=== PATIENT | female | born 1965 | race Caucasian/White ===

== ENCOUNTER 2022-04-14 12:03 | Observation (INO) | payer BC ==
[2022-04-14 12:26] VITALS: BMI 30.9
[2022-04-14] MEDS ORDERED: IBUPROFEN 600 MG TABLET (FP) PO ONE ×2 (13:47→13:49)
[2022-04-14] MEDS ORDERED: ACETAMINOPHEN 325 MG TABLET (FP) PO ONE (16:50)
[2022-04-14] MEDS ORDERED: ACETAMINOPHEN 325 MG TABLET (FP) ONE (16:55)
[2022-04-14 17:29] LABS: INR 1.13 (0.83-1.09)
[2022-04-14 17:31] LABS: ACTIVATED PTT 61.2 SECONDS (25.2-36.5); BASO % 0.5 % (0-2.0); EOS % 2.2 % (0-4.5); HEMATOCRIT 32.7 % (32.4-45.2); HEMOGLOBIN 10.7 GM/dL (10.7-15.3); LYMPH % 27.2 % (8-40); MCH 26.1 pg (25.7-33.7); MCHC 32.7 g/dl (32.0-36.0); MEAN CELL VOLUME 79.8 fl (80-96); MEAN PLT VOLUME 8.9 fl (7.5-11.1); MONO % 8.2 % (3.8-10.2); NEUT % 61.9 % (42.8-82.8); PLATELET COUNT 205 10^3/uL (134-434); RDW 15.5 % (11.6-15.6); WHITE BLOOD COUNT 9.5 K/mm3 (4.0-10.0)
[2022-04-14 17:44] LABS: BLOOD UREA NITROGEN 17.4 mg/dL (7-18); CALCIUM 9.6 mg/dL (8.5-10.1)
[2022-04-14 17:48] LABS: CREATININE 0.8 mg/dL (0.55-1.3)
[2022-04-14 17:49] LABS: BILIRUBIN,TOTAL 0.4 mg/dL (0.2-1); TOT PROT 7.5 g/dl (6.4-8.2)
[2022-04-14] MEDS ORDERED: ACETAMINOPHEN 325 MG TABLET (FP) PO PRN (17:56)
[2022-04-14] MEDS ORDERED: ACETAMINOPHEN 500 MG TABLET (FP) PO PRN (17:58)
[2022-04-14] MEDS ORDERED: ENOXAPARIN NA (PORCINE) 80 MG/0.8 ML DISP.SYRIN SQ SCH (18:00)
[2022-04-14] MEDS ORDERED: morphine SULFATE 4 MG/ML VIAL ONE (20:30)
[2022-04-14] MEDS: morphine SULFATE 4 MG/ML VIAL IVPUSH PRN (20:37)
[2022-04-14] MEDS: APIXABAN 5 MG TABLET PO SCH (22:17)
[2022-04-14] MEDS ORDERED: SIMETHICONE 80 MG TAB.CHEW (FP) PO ONE (23:01)
[2022-04-14] MEDS ORDERED: MELATONIN 5 MG TABLETS PO PRN (23:04)
[2022-04-15] MEDS ORDERED: ZOLPIDEM TARTRATE 5 MG TABLET PO ONE (01:00)
[2022-04-15 08:54] LABS: HEMATOCRIT 29.2 % (32.4-45.2); HEMOGLOBIN 9.6 GM/dL (10.7-15.3); MCHC 32.9 g/dl (32.0-36.0); MEAN CELL VOLUME 79.1 fl (80-96); MEAN PLT VOLUME 8.6 fl (7.5-11.1); PLATELET COUNT 185 10^3/uL (134-434); RBC 3.69 M/mm3 (3.60-5.2); RDW 15.4 % (11.6-15.6); WHITE BLOOD COUNT 5.3 K/mm3 (4.0-10.0)
[2022-04-15 09:26] LABS: CALCIUM 9.6 mg/dL (8.5-10.1)
[2022-04-15 09:31] LABS: CREATININE 0.6 mg/dL (0.55-1.3)
[2022-04-15] MEDS ORDERED: PATIENT'S OWN MEDICATION (NON-FORMULARY) (Lisinopril/Hydrochlorothiazide [Lisinopril-Hctz PO SCH (10:00)
[2022-04-15] MEDS ORDERED: FLU VACC QS2022-23(6MOS UP)/PF 60 MCG/0.5 ML SYRINGE IM ONE (10:00)
[2022-04-15] MEDS: HYDROCHLOROTHIAZIDE 12.5 MG CAPSULE (FP) PO SCH (10:19)
[2022-04-15] MEDS: LISINOPRIL 20 MG TABLET PO SCH (10:19)
[2022-04-15] MEDS: APIXABAN 5 MG TABLET PO SCH ×2 (10:19→21:18)
[2022-04-15] MEDS: PANTOPRAZOLE 20 MG TABLET PO SCH (13:21)
[2022-04-15] MEDS: morphine SULFATE 4 MG/ML VIAL IVPUSH PRN (15:00)
[2022-04-15 15:33] LABS: INR 1.6 (0.83-1.09); PROTHROMBIN TIME (PATIENT) 18.5 SEC (9.7-13.0)
[2022-04-15 15:36] LABS: ACTIVATED PTT 74.2 SECONDS (25.2-36.5)
[2022-04-16 06:32] VITALS: PULSE 62; RESP 20
[2022-04-16] MEDS: APIXABAN 5 MG TABLET PO SCH (10:11)
[2022-04-16] MEDS: HYDROCHLOROTHIAZIDE 12.5 MG CAPSULE (FP) PO SCH (10:11)
[2022-04-16] MEDS: PANTOPRAZOLE 20 MG TABLET PO SCH (10:11)
[2022-04-16] MEDS: LISINOPRIL 20 MG TABLET PO SCH (10:12)
[2022-04-16] MEDS ORDERED: IRON SUCROSE INJECTION 100 MG in SODIUM CHLORIDE 95 ML IVPB ONE (10:15)
[2022-04-16 10:39] LABS: HEMATOCRIT 34.6 % (32.4-45.2); HEMOGLOBIN 10.8 GM/dL (10.7-15.3); MCH 24.9 pg (25.7-33.7); MCHC 31.4 g/dl (32.0-36.0); MEAN CELL VOLUME 79.5 fl (80-96); PLATELET COUNT 255 10^3/uL (134-434); RBC 4.35 M/mm3 (3.60-5.2); RDW 15.7 % (11.6-15.6); WHITE BLOOD COUNT 7.4 K/mm3 (4.0-10.0)
[2022-04-16 10:50] LABS: INR 1.3 (0.83-1.09)
[2022-04-16 10:53] LABS: ACTIVATED PTT 76.7 SECONDS (25.2-36.5)
[2022-04-16 11:02] LABS: ALBUMIN 3.4 g/dl (3.4-5.0); BLOOD UREA NITROGEN 13.1 mg/dL (7-18); CALCIUM 9.4 mg/dL (8.5-10.1)
[2022-04-16 11:05] LABS: CREATININE 0.6 mg/dL (0.55-1.3)
[2022-04-16 11:07] LABS: BILIRUBIN,TOTAL 0.3 mg/dL (0.2-1)
[2022-04-16] MEDS ORDERED: GLYCERIN 1 RECTAL SUPPOSITORY, ADULT RC ONE (13:42)
[2022-04-16 14:32] VITALS: BP 136/76; TEMP 98.2
[2022-04-18 13:07] LABS: PROTEIN S FREE 98 % (61-136)
== END 2022-04-16 19:15 | disposition home or self-care (01) ==
LOC: JER 12:03 → UNDOADMOB 17:24 → JERBED 17:24 → INTOOBSV 17:24 → JERBED 17:59 → J8W 20:54
PROVIDERS: ADMIT Internal Medicine; ATTEND Internal Medicine
PROC: 3E0234Z Introduction of Serum, Toxoid and Vaccine into Muscle, Percutaneous Approach (ICD-10-PCS; principal; 2022-04-14)
PROC: 3E033NZ Introduction of Analgesics, Hypnotics, Sedatives into Peripheral Vein, Percutaneous Approach (ICD-10-PCS; 2022-04-14)
DX: I82.462 Acute embolism and thrombosis of left calf muscular vein (principal); Z79.01 Long term (current) use of anticoagulants; Z88.8 Allergy status to other drugs, medicaments and biological substances; E66.8 Other obesity; Z68.31 Body mass index [BMI] 31.0-31.9, adult; I10 Essential (primary) hypertension; Z98.84 Bariatric surgery status; Z23 Encounter for immunization
CPT/HCPCS: 36415; 71046-TC-FY; 76700-TC; 80048; 80053; 81241; 82272; 82728; 83540; 83550; 85025; 85027; 85300; 85302; 85303; 85305; 85306; 85610; 85613; 85730; 85732; 93005; 93010; 93971-TC; 99285-25; C9803-CS; G0378; Q2036; U0003; U0005

== ENCOUNTER 2022-04-21 15:40 | Emergency (ER) | payer BC ==
[2022-04-21 15:49] VITALS: BP 102/66; PULSE 87; RESP 18; TEMP 98.3; BMI 31.4
[2022-04-21] MEDS ORDERED: ACETAMINOPHEN 325 MG TABLET (FP) PO ONE (16:19)
[2022-04-21] MEDS ORDERED: ACETAMINOPHEN 325 MG TABLET (FP) ONE (16:22)
== END 2022-04-21 17:44 | disposition home or self-care (01) ==
LOC: JER 15:40
DX: I82.431 Acute embolism and thrombosis of right popliteal vein (principal)
CPT/HCPCS: 93971-TC; 99284-25

== ENCOUNTER 2022-06-26 12:49 | Day surgery (SDC) | payer BC ==
[~2022-06-26 12:49] MED LIST: IRON SUCROSE INJECTION 200 MG in SODIUM CHLORIDE 100 ML IVPB ONE
[2022-06-26 16:42] VITALS: BP 117/68; PULSE 71; RESP 18; TEMP 97.5
== END 2022-06-26 16:45 | disposition home or self-care (01) ==
LOC: JCHEMO 12:49 → J7W 12:49 → JCHEMO 16:45
PROVIDERS: ATTEND Internal Medicine
PROC: 3E033GC Introduction of Other Therapeutic Substance into Peripheral Vein, Percutaneous Approach (ICD-10-PCS; principal; 2022-06-26)
DX: D50.9 Iron deficiency anemia, unspecified (principal)
CPT/HCPCS: 96365; J1756

== ENCOUNTER 2022-06-27 13:56 | Observation (INO) | payer BC ==
[2022-06-27] MEDS ORDERED: ACETAMINOPHEN 1000 MG/100 ML BAG IVPB ONE (15:16)
[2022-06-27] MEDS ORDERED: LACTATED RINGERS SOLUTION 1000 ML INFUS.BAG IV ONE (15:16)
[2022-06-27] MEDS ORDERED: ACETAMINOPHEN INJECTION 100 ML IVPB ONE (15:37)
[2022-06-27 16:46] LABS: BASO % 0.8 % (0-2.0); EOS % 1.7 % (0-4.5); HEMATOCRIT 31.4 % (32.4-45.2); HEMOGLOBIN 10.1 GM/dL (10.7-15.3); LYMPH % 31.3 % (8-40); MCH 25.4 pg (25.7-33.7); MEAN CELL VOLUME 79.2 fl (80-96); MEAN PLT VOLUME 9.1 fl (7.5-11.1); NEUT % 56.2 % (42.8-82.8); PLATELET COUNT 239 10^3/uL (134-434); RBC 3.96 M/mm3 (3.60-5.2)
[2022-06-27 16:51] LABS: INR 1.3 (0.83-1.09)
[2022-06-27 16:53] LABS: ACTIVATED PTT 72.1 SECONDS (25.2-36.5); CHLORIDE 109 mmol/L (98-107); SODIUM 143 mmol/L (136-145)
[2022-06-27 16:55] LABS: ALBUMIN 3.7 g/dl (3.4-5.0); ANION GAP 9 MMOL/L (8-16); BLOOD UREA NITROGEN 17.2 mg/dL (7-18); CALCIUM 9.3 mg/dL (8.5-10.1); CO2 25 mmol/L (21-32); GLUCOSE,RANDOM 93 mg/dL (74-106); MAGNESIUM 2.4 mg/dL (1.8-2.4)
[2022-06-27 16:58] LABS: CREATININE 0.7 mg/dL (0.55-1.3); SGOT/AST 22 U/L (15-37); SGPT/ALT 24 U/L (13-61)
[2022-06-27 17:00] LABS: BILIRUBIN,TOTAL 0.2 mg/dL (0.2-1); TOT PROT 7.1 g/dl (6.4-8.2)
[2022-06-27 17:01] LABS: ALK PHOS 100 U/L (45-117)
[2022-06-27] MEDS ORDERED: ASPIRIN 81 MG CHEWABLE TABLETS PO ONE (17:26)
[2022-06-27 17:33] LABS: ERYTHROCYTE SEDIMENTATION RATE 36 mm/hr (0-30)
[2022-06-27] MEDS ORDERED: ASPIRIN 81 MG CHEWABLE TABLETS ONE (17:37)
[2022-06-27] MEDS ORDERED: APIXABAN 5 MG TABLET ONE (23:07)
[2022-06-27] MEDS: APIXABAN 5 MG TABLET PO SCH (23:08)
[2022-06-28 06:43] LABS: HEMATOCRIT 29.3 % (32.4-45.2); HEMOGLOBIN 9.4 GM/dL (10.7-15.3); MCH 25.6 pg (25.7-33.7); MCHC 32.2 g/dl (32.0-36.0); MEAN CELL VOLUME 79.4 fl (80-96); PLATELET COUNT 205 10^3/uL (134-434); RBC 3.69 M/mm3 (3.60-5.2); WHITE BLOOD COUNT 5.4 K/mm3 (4.0-10.0)
[2022-06-28 06:44] LABS: INR 1.18 (0.83-1.09); PROTHROMBIN TIME (PATIENT) 13.6 SEC (9.7-13.0)
[2022-06-28 06:49] LABS: ALBUMIN 3.2 g/dl (3.4-5.0); BLOOD UREA NITROGEN 12.8 mg/dL (7-18); CALCIUM 8.7 mg/dL (8.5-10.1)
[2022-06-28 06:52] LABS: CREATININE 0.7 mg/dL (0.55-1.3)
[2022-06-28 06:54] LABS: BILIRUBIN,TOTAL 0.2 mg/dL (0.2-1); CHOLESTEROL 165 mg/dL (50-200); TOT PROT 6.1 g/dl (6.4-8.2); TRIGLYCERIDES 41 mg/dL (0-150)
[2022-06-28 06:55] LABS: LDL CHOLESTEROL (ONLY SJRH) 82 mg/dL (5-100)
[2022-06-28 06:57] LABS: HDL CHOLESTEROL 85 mg/dL (40-60)
[2022-06-28] MEDS ORDERED: HYDROCHLOROTHIAZIDE 25 MG TABLET (FP) ONE (09:47)
[2022-06-28] MEDS ORDERED: ZOLPIDEM TARTRATE 5 MG TABLET ONE ×2 (09:47→21:58)
[2022-06-28] MEDS ORDERED: LISINOPRIL 20 MG TABLET ONE (09:47)
[2022-06-28] MEDS ORDERED: APIXABAN 5 MG TABLET ONE ×3 (09:47→22:02)
[2022-06-28] MEDS ORDERED: PATIENT'S OWN MEDICATION (NON-FORMULARY) (Lisinopril/Hydrochlorothiazide [Lisinopril-Hctz PO SCH (10:00)
[2022-06-28] MEDS: ZOLPIDEM TARTRATE 5 MG TABLET PO PRN ×2 (10:08→22:22)
[2022-06-28] MEDS: APIXABAN 5 MG TABLET PO SCH ×2 (10:08→22:22)
[2022-06-28] MEDS: HYDROCHLOROTHIAZIDE 12.5 MG CAPSULE (FP) PO SCH (10:08)
[2022-06-28] MEDS: LISINOPRIL 20 MG TABLET PO SCH (10:08)
[2022-06-29 07:24] LABS: CALCIUM 9.3 mg/dL (8.5-10.1)
[2022-06-29 07:25] LABS: BLOOD UREA NITROGEN 19.4 mg/dL (7-18)
[2022-06-29 07:28] LABS: CREATININE 0.7 mg/dL (0.55-1.3)
[2022-06-29 07:30] LABS: BASO % 0.7 % (0-2.0); EOS % 2.3 % (0-4.5); HEMATOCRIT 28.7 % (32.4-45.2); HEMOGLOBIN 9.5 GM/dL (10.7-15.3); LYMPH % 36.8 % (8-40); MCH 25.9 pg (25.7-33.7); MEAN CELL VOLUME 78.6 fl (80-96); MEAN PLT VOLUME 8.9 fl (7.5-11.1); MONO % 9.7 % (3.8-10.2); NEUT % 50.5 % (42.8-82.8); PLATELET COUNT 239 10^3/uL (134-434); RBC 3.65 M/mm3 (3.60-5.2); RDW 15.9 % (11.6-15.6); WHITE BLOOD COUNT 6.5 K/mm3 (4.0-10.0)
[2022-06-29] MEDS ORDERED: APIXABAN 5 MG TABLET ONE ×2 (09:54→21:34)
[2022-06-29] MEDS ORDERED: HYDROCHLOROTHIAZIDE 25 MG TABLET (FP) ONE (09:55)
[2022-06-29] MEDS ORDERED: LISINOPRIL 20 MG TABLET ONE (09:55)
[2022-06-29] MEDS: HYDROCHLOROTHIAZIDE 12.5 MG CAPSULE (FP) PO SCH (09:56)
[2022-06-29] MEDS: LISINOPRIL 20 MG TABLET PO SCH (09:56)
[2022-06-29] MEDS: APIXABAN 5 MG TABLET PO SCH ×2 (09:56→21:32)
[2022-06-29 20:27] VITALS: RESP 18
[2022-06-29] MEDS: ZOLPIDEM TARTRATE 5 MG TABLET PO PRN (21:32)
[2022-06-29] MEDS ORDERED: ZOLPIDEM TARTRATE 5 MG TABLET ONE (21:33)
[2022-06-30 07:57] LABS: BASO % 0.9 % (0-2.0); EOS % 2.3 % (0-4.5); HEMATOCRIT 31.9 % (32.4-45.2); HEMOGLOBIN 10.2 GM/dL (10.7-15.3); LYMPH % 34.3 % (8-40); MCH 25.4 pg (25.7-33.7); MEAN CELL VOLUME 79.3 fl (80-96); MEAN PLT VOLUME 8.9 fl (7.5-11.1); MONO % 8.4 % (3.8-10.2); NEUT % 54.1 % (42.8-82.8); PLATELET COUNT 271 10^3/uL (134-434); RBC 4.03 M/mm3 (3.60-5.2); WHITE BLOOD COUNT 6.4 K/mm3 (4.0-10.0)
[2022-06-30 08:20] LABS: BLOOD UREA NITROGEN 15.8 mg/dL (7-18); CALCIUM 9.1 mg/dL (8.5-10.1)
[2022-06-30 08:22] LABS: CREATININE 0.7 mg/dL (0.55-1.3)
[2022-06-30] MEDS ORDERED: HYDROCHLOROTHIAZIDE 25 MG TABLET (FP) ONE (09:24)
[2022-06-30] MEDS ORDERED: APIXABAN 5 MG TABLET ONE (09:24)
[2022-06-30] MEDS ORDERED: LISINOPRIL 20 MG TABLET ONE (09:25)
[2022-06-30] MEDS: HYDROCHLOROTHIAZIDE 12.5 MG CAPSULE (FP) PO SCH ×2 (10:30→11:39)
[2022-06-30] MEDS: APIXABAN 5 MG TABLET PO SCH (11:39)
[2022-06-30] MEDS: LISINOPRIL 20 MG TABLET PO SCH (11:40)
[2022-06-30 13:48] VITALS: BMI 32.5
[2022-06-30 15:26] VITALS: BP 122/75; PULSE 73; TEMP 98.2
[2022-06-30] MEDS ORDERED: APIXABAN 5 MG TABLET PO SCH (22:00)
[2022-07-01] MEDS ORDERED: LISINOPRIL 20 MG TABLET PO SCH (10:00)
== END 2022-06-30 16:05 | disposition home or self-care (01) ==
LOC: JER 13:56 → JERBED 18:15 → J5S 06-30 11:01
PROVIDERS: ADMIT Internal Medicine; ATTEND Internal Medicine
PROC: 3E033NZ Introduction of Analgesics, Hypnotics, Sedatives into Peripheral Vein, Percutaneous Approach (ICD-10-PCS; principal; 2022-06-27)
DX: I10 Essential (primary) hypertension (principal); Z86.718 Personal history of other venous thrombosis and embolism; Z87.891 Personal history of nicotine dependence; R00.2 Palpitations; R51.9 Headache, unspecified; E66.01 Morbid (severe) obesity due to excess calories; Z68.32 Body mass index [BMI] 32.0-32.9, adult; R77.8 Other specified abnormalities of plasma proteins; I21.4 Non-ST elevation (NSTEMI) myocardial infarction
CPT/HCPCS: 0241U-QW; 36415; 70450-TC; 70544-TC; 71045-TC-FY; 71275-TC; 80048; 80053; 80061; 82728; 82962; 83540; 83550; 83735; 84100; 84466; 84484; 85025; 85027; 85045; 85610; 85651; 85730; 86140; 93005; 93010; 93306-TC; 93880-TC; 99285-25; G0378; Q9967

== ENCOUNTER 2022-07-03 16:58 | Day surgery (SDC) | payer BC ==
[~2022-07-03 16:58] MED LIST changes: +DIPHENHYDRAMINE 25 MG in SODIUM CHLORIDE 50 ML IVPB ONE; +HYDROCORTISONE SOD SUCCINATE 100 MG/2 ML VIAL IVPB ONE
[2022-07-03 17:27] VITALS: RESP 20; TEMP 98.2
[2022-07-03 18:03] VITALS: BP 121/67; PULSE 78
== END 2022-07-03 18:15 | disposition home or self-care (01) ==
LOC: JCHEMO 16:58
PROVIDERS: ATTEND Internal Medicine
PROC: 3E033GC Introduction of Other Therapeutic Substance into Peripheral Vein, Percutaneous Approach (ICD-10-PCS; principal; 2022-07-03)
DX: D50.9 Iron deficiency anemia, unspecified (principal)
CPT/HCPCS: 96365; J1756

== ENCOUNTER 2022-07-10 15:49 | Day surgery (SDC) | payer BC ==
[~2022-07-10 15:49] MED LIST changes: -HYDROCORTISONE SOD SUCCINATE 100 MG/2 ML VIAL IVPB ONE; +HYDROCORTISONE SOD SUCCINATE 100 MG/2 ML VIAL IVPUSH ONE
[2022-07-10 17:23] VITALS: BP 107/65; PULSE 72; RESP 20; TEMP 98.1
== END 2022-07-10 18:24 | disposition home or self-care (01) ==
LOC: JCHEMO 15:49
PROVIDERS: ATTEND Internal Medicine
PROC: 3E033GC Introduction of Other Therapeutic Substance into Peripheral Vein, Percutaneous Approach (ICD-10-PCS; principal; 2022-07-10)
DX: D50.9 Iron deficiency anemia, unspecified (principal)
CPT/HCPCS: 96365; J1756

== ENCOUNTER 2022-07-17 11:29 | Day surgery (SDC) | payer BC, OTHER ==
[~2022-07-17 11:29] MED LIST changes: -DIPHENHYDRAMINE 25 MG in SODIUM CHLORIDE 50 ML IVPB ONE; +DIPHENHYDRAMINE IVPB ONE; -HYDROCORTISONE SOD SUCCINATE 100 MG/2 ML VIAL IVPUSH ONE; +HYDROCORTISONE SOD SUCCINATE IVPB ONE; +SODIUM CHLORIDE IVPB ONE
[2022-07-17 16:51] VITALS: RESP 18; TEMP 97.8
[2022-07-17 17:45] VITALS: BP 123/72; PULSE 72
== END 2022-07-17 17:35 | disposition home or self-care (01) ==
LOC: J7W 11:29 → JCHEMO 11:29
PROVIDERS: ATTEND Internal Medicine
PROC: 3E033GC Introduction of Other Therapeutic Substance into Peripheral Vein, Percutaneous Approach (ICD-10-PCS; principal; 2022-07-17)
DX: D50.9 Iron deficiency anemia, unspecified (principal)
CPT/HCPCS: 96365; J1756

== ENCOUNTER 2022-07-24 12:17 | Day surgery (SDC) | payer BC, OTHER ==
[~2022-07-24 12:17] MED LIST changes: +DIPHENHYDRAMINE 25 MG in SODIUM CHLORIDE 50 ML IVPB ONE; -DIPHENHYDRAMINE IVPB ONE; +HYDROCORTISONE SOD SUCCINATE 100 MG/2 ML VIAL IVPB ONE; -HYDROCORTISONE SOD SUCCINATE IVPB ONE; -SODIUM CHLORIDE IVPB ONE
[2022-07-24 16:35] VITALS: RESP 18; TEMP 97.9
[2022-07-24 17:26] VITALS: BP 111/70; PULSE 68
== END 2022-07-24 17:26 | disposition home or self-care (01) ==
LOC: JCHEMO 12:17 → J7W 12:17 → JCHEMO 17:26
PROVIDERS: ATTEND Internal Medicine
PROC: 3E033GC Introduction of Other Therapeutic Substance into Peripheral Vein, Percutaneous Approach (ICD-10-PCS; principal; 2022-07-24)
DX: D50.9 Iron deficiency anemia, unspecified (principal)
CPT/HCPCS: 96365; J1756

== ENCOUNTER 2023-05-21 12:58 | Observation (INO) | payer OTHER ==
[2023-05-21 13:04] VITALS: BMI 28.3
[2023-05-21] MEDS ORDERED: SODIUM CHLORIDE 0.9% 500 ML INFUS.BAG IV ONE (13:22)
[2023-05-21] MEDS ORDERED: ACETAMINOPHEN 1000 MG/100 ML BAG IVPB ONE (13:22)
[2023-05-21] MEDS ORDERED: ONDANSETRON 4 MG/2 ML VIAL IVPUSH ONE (13:23)
[2023-05-21] MEDS ORDERED: MAG HYDROX/AL HYDROX/SIMETH 30 ML UNIT-DOSE CUP PO ONE (13:23)
[2023-05-21] MEDS ORDERED: FAMOTIDINE 20 MG/50 ML IVPB 20 MG/50 ML MG IVPB ONE ×2 (13:23→13:47)
[2023-05-21] MEDS ORDERED: ONDANSETRON 4 MG/2 ML VIAL ONE (13:47)
[2023-05-21] MEDS ORDERED: ACETAMINOPHEN INJECTION 100 ML IVPB ONE (13:47)
[2023-05-21 14:02] LABS: BASO % 0.6 % (0-2.0); EOS % 1.4 % (0-4.5); HEMATOCRIT 37.4 % (32.4-45.2); HEMOGLOBIN 12.7 GM/dL (10.7-15.3); LYMPH % 24.4 % (8-40); MCH 30.9 pg (25.7-33.7); MEAN CELL VOLUME 90.9 fl (80-96); MEAN PLT VOLUME 8.6 fl (7.5-11.1); MONO % 8.2 % (3.8-10.2); NEUT % 65.4 % (42.8-82.8); PLATELET COUNT 303 10^3/uL (134-434); RBC 4.12 M/mm3 (3.60-5.2); RDW 12.7 % (11.6-15.6); WHITE BLOOD COUNT 7.4 K/mm3 (4.0-10.0)
[2023-05-21 14:15] LABS: POTASSIUM 3.9 mmol/L (3.5-5.1)
[2023-05-21 14:17] LABS: CALCIUM 9.4 mg/dL (8.5-10.1)
[2023-05-21 14:18] LABS: BLOOD UREA NITROGEN 16.7 mg/dL (7-18); MAGNESIUM 2.5 mg/dL (1.8-2.4)
[2023-05-21 14:22] LABS: BILIRUBIN,TOTAL 0.4 mg/dL (0.2-1)
[2023-05-21 16:57] LABS: INR 1.12 (0.83-1.09)
[2023-05-21 17:00] LABS: ACTIVATED PTT 55.9 SECONDS (25.2-36.5)
[2023-05-21] MEDS ORDERED: ONDANSETRON 4 MG/2 ML VIAL IVPUSH PRN (21:32)
[2023-05-21] MEDS ORDERED: ZOLPIDEM TARTRATE 5 MG TABLET PO PRN (21:34)
[2023-05-21] MEDS ORDERED: PATIENT'S OWN MEDICATION (NON-FORMULARY) (Apixaban [Eliquis - Starter Pack (For Vte)] 5 MG PO SCH (21:45)
[2023-05-21] MEDS ORDERED: ATORVASTATIN CA 40 MG TABLET (FP) PO SCH (22:00)
[2023-05-22] MEDS ORDERED: ZOLPIDEM TARTRATE 5 MG TABLET ONE (01:28)
[2023-05-22 07:57] LABS: BASO % 0.8 % (0-2.0); EOS % 2.4 % (0-4.5); HEMATOCRIT 36.6 % (32.4-45.2); HEMOGLOBIN 12.2 GM/dL (10.7-15.3); LYMPH % 34.4 % (8-40); MCH 30.5 pg (25.7-33.7); MCHC 33.3 g/dl (32.0-36.0); MEAN CELL VOLUME 91.7 fl (80-96); MEAN PLT VOLUME 8.9 fl (7.5-11.1); MONO % 8.8 % (3.8-10.2); NEUT % 53.6 % (42.8-82.8); PLATELET COUNT 266 10^3/uL (134-434); RBC 3.99 M/mm3 (3.60-5.2); RDW 12.6 % (11.6-15.6); WHITE BLOOD COUNT 5.6 K/mm3 (4.0-10.0)
[2023-05-22 08:12] VITALS: RESP 18
[2023-05-22 08:26] LABS: CALCIUM 9.2 mg/dL (8.5-10.1); POTASSIUM 3.7 mmol/L (3.5-5.1)
[2023-05-22 08:27] LABS: ALBUMIN 3.7 g/dl (3.4-5.0); BLOOD UREA NITROGEN 13.6 mg/dL (7-18)
[2023-05-22 08:30] LABS: CREATININE 0.8 mg/dL (0.55-1.3)
[2023-05-22 08:31] LABS: TOT PROT 6.6 g/dl (6.4-8.2)
[2023-05-22 08:32] LABS: BILIRUBIN,TOTAL 0.4 mg/dL (0.2-1)
[2023-05-22] MEDS ORDERED: HYDROCHLOROTHIAZIDE 12.5 MG CAPSULE (FP) PO SCH ×2 (10:00)
[2023-05-22] MEDS ORDERED: LISINOPRIL 20 MG TABLET PO SCH (10:00)
[2023-05-22] MEDS ORDERED: PATIENT'S OWN MEDICATION (NON-FORMULARY) (Lisinopril/Hydrochlorothiazide [Lisinopril-Hctz PO SCH (10:00)
[2023-05-22] MEDS ORDERED: ENOXAPARIN NA (PORCINE) 40 MG/0.4 ML DISP.SYRIN SQ SCH (10:00)
[2023-05-22] MEDS ORDERED: ENOXAPARIN NA (PORCINE) 40 MG/0.4 ML DISP.SYRIN SQ ONE (10:08)
[2023-05-22 13:24] VITALS: BP 139/77; PULSE 65; TEMP 97.6
== END 2023-05-22 13:15 | disposition home or self-care (01) ==
LOC: JER 12:58 → JERBED 19:06
PROVIDERS: ADMIT Student in an Organized Health Care Education/Training Program; ATTEND Internal Medicine
PROC: 3E033NZ Introduction of Analgesics, Hypnotics, Sedatives into Peripheral Vein, Percutaneous Approach (ICD-10-PCS; principal; 2023-05-21)
PROC: 3E033GC Introduction of Other Therapeutic Substance into Peripheral Vein, Percutaneous Approach (ICD-10-PCS; 2023-05-21)
PROC: 3E0337Z Introduction of Electrolytic and Water Balance Substance into Peripheral Vein, Percutaneous Approach (ICD-10-PCS; 2023-05-21)
DX: R10.13 Epigastric pain (principal); R77.8 Other specified abnormalities of plasma proteins; K21.9 Gastro-esophageal reflux disease without esophagitis; R00.1 Bradycardia, unspecified; I10 Essential (primary) hypertension; Z86.718 Personal history of other venous thrombosis and embolism; Z98.84 Bariatric surgery status; Z88.8 Allergy status to other drugs, medicaments and biological substances
CPT/HCPCS: 36415; 71046-TC-FY; 74177-TC; 76700-TC; 80053; 83690; 83735; 84484; 85025; 85610; 85730; 86850; 86900; 86901; 93005; 93010; 93306-TC; 99285-25; G0378; Q9967